=== PATIENT | male | born 1950 | race Caucasian/White ===

== ENCOUNTER 2017-09-11 09:14 | Emergency (ER) | payer BC, OTHER, MEDICARE ==
[~2017-09-11] VITALS: Ht 185.4 cm; Wt 130.7 kg
[~2017-09-11 09:14] MED LIST: ALBU8I INH; AMIT10 PO; ATOR40TA PO; GABA100C4 PO; GABA300C3 PO; LEVA500T33 PO; LISI-363 PO; METO25 PO; NOVONP2 SQ; PRED50TA PO; TAMS0.4C4 PO; VENL75 PO; WARF1TAB PO; WARF7.5T4 PO; ZITH500T PO
[2017-09-11 09:16] VITALS: BP 147/71; PULSE 67; RESP 16; TEMP 97.8; O2SAT 99
[2017-09-11] MEDS ORDERED: DIAZ5 PO (10:08)
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
[2017-09-11] MEDS ORDERED: VITATAB11 PO (10:14)
[2017-09-11] MEDS ORDERED: LISI40TA PO (10:14)
[2017-09-11] MEDS ORDERED: CARB10TA6 PO (10:14)
[2017-09-11] MEDS ORDERED: ATOR40TA16 PO (10:14)
[2017-09-11] MEDS ORDERED: METF1000 PO (10:14)
[2017-09-11] MEDS ORDERED: MULT-65 PO (10:14)
[2017-09-11] MEDS ORDERED: BUPR300T PO (10:14)
[2017-09-11] MEDS ORDERED: ALFU10TA2 PO (10:14)
[2017-09-11] MEDS ORDERED: VITA1000 PO (10:14)
[2017-09-11] MEDS ORDERED: COUM2TAB PO (10:16)
[2017-09-11] MEDS ORDERED: COUM2.5T PO (10:16)
== END 2017-09-11 10:28 | disposition home or self-care (01) ==
LOC: PHED 09:14
DX: S76.912A Strain of unspecified muscles, fascia and tendons at thigh level, left thigh, initial encounter (principal); X50.9XXA Other and unspecified overexertion or strenuous movements or postures, initial encounter; E78.00 Pure hypercholesterolemia, unspecified; E11.9 Type 2 diabetes mellitus without complications; I10 Essential (primary) hypertension; Z86.718 Personal history of other venous thrombosis and embolism
CPT/HCPCS: 99282